=== PATIENT | male | born 1995 ===

== ENCOUNTER 2017-07-16 02:04 | Emergency (ER) | payer OTHER ==
[~2017-07-16] VITALS: Ht 175.3 cm; Wt 75.5 kg
[~2017-07-16 02:04] MED LIST: [UNRECOGNIZED DRUG - CODE] PO
[2017-07-16 02:11] VITALS: TEMP 36.7; Ht 175.3 cm; Wt 75.5 kg
[2017-07-16 02:57] LABS: BASO % 0.1 %; BASO ABS # 0.01 K/uL (0-0.2); EOS % 1.1 %; EOS ABS # 0.09 K/uL (0-0.5); HEMATOCRIT 45.1 % (42-52); HEMOGLOBIN 15.7 g/dL (14.0-18.0); IG# 0.01 K/uL (0.00-0.02); LYMPH % 17.8 %; LYMPH ABS # 1.42 K/uL (1.2-3.4); MEAN CELL VOLUME 85.1 fL (80-100); MEAN CORPUSCULAR HEMOGLOBIN 29.6 pg (25-34); MEAN CORPUSCULAR HGB CONC 34.8 g/dl (32-36); MEAN PLATELET VOLUME 10.7 fL (7.4-10.4); MONO ABS # 0.88 K/uL (0.11-0.59); NEUT % 69.9 %; NEUT ABS # 5.59 K/uL (1.4-6.5); PLATELET COUNT 143 K/uL (130-400); RED CELL DISTRIBUTION WIDTH CV 12.8 % (11.5-14.5); RED CELL DISTRIBUTION WIDTH SD 39.7 fL (36.4-46.3)
[2017-07-16 03:17] LABS: ALBUMIN 4.3 gm/dl (3.4-5.0); CALCIUM 9.1 mg/dl (8.5-10.1); CREATININE 1.09 mg/dl (0.60-1.40); POTASSIUM 3.8 mmol/L (3.5-5.1)
[2017-07-16 03:19] LABS: TOTAL PROTEIN 8.1 gm/dl (6.4-8.2)
[2017-07-16 03:30] LABS: INFLUENZA B ANTIGEN Neg for Influ B (NEG)
[2017-07-16] MEDS ORDERED: OPTIRAY 320 IV PRN (03:45)
[2017-07-16] MEDS ORDERED: LORAZEPAM 2 MG/ML 1 ML VIAL IV STA (04:53)
[2017-07-16] MEDS ORDERED: LORAZEPAM 2 MG/ML 1 ML VIAL ONE (04:53)
[2017-07-16] MEDS ORDERED: NURSING VERBAL MED ORDER ONE (05:00)
[2017-07-16] MEDS ORDERED: VANCOMYCIN INJ 2,000 MG in SODIUM CHLORIDE 0.9% 500ML 500 ML IV STA (05:07)
[2017-07-16] MEDS ORDERED: CEFTRIAXONE SOD INJ 1 GM ADDVIAL IV STA (05:07)
[2017-07-16] MEDS ORDERED: VANCOMYCIN CONSULT ACTIVE PRN (05:15)
[2017-07-16] MEDS ORDERED: DEXAMETHASONE **PF** INJ 10 MG/ML VIAL IV ONE (05:15)
[2017-07-16] MEDS ORDERED: FAMOTIDINE 20MG/5ML IV PUSH IV STA (06:05)
--- NOTE | 2017-07-16 06:11 | EMERGENCY ROOM VISIT NOTE ---
History First contact with patient: 02:18 Chief Complaint: FOOD BOLUS Stated Complaint: FOOD BOLUS Nursing Triage Summary: c/o of being unable to swallow over the last several days. Pt states that it got worse this morning at 1000. History of Present Illness The patient is a 22 year old male who presents to the Emergency Room with complaints of dysphasia and feeling like something is in his throat having difficulty swallowing for the past day with a fever and cold symptoms prior to this beginning. Patient states Tuesday he felt like he had a flu. He had fevers chills body aches and pains. He states later that night he felt like something was in his throat and having difficulty swallowing. Symptoms persisted and this is what prompted him to come to the ER. Patient denies chest pain, dyspnea, productive cough, sore throat, abdominal pain, vomiting, diarrhea. Review of Systems An 10 system review of systems was completed with positives and pertinent negatives listed in the HPI. Past Medical/Surgical History None Family History No significant family history Social History Smoking Status: Never Smoker Alcohol Use: none Drug Use: marijuana Marital Status: single Housing Status: lives with roommate Occupation Status: [employer] Current/Historical Medications No Active Prescriptions or Reported Meds Physical Exam Vital Signs Date Time Temp Pulse Resp B/P (MAP) Pulse Ox O2 Delivery O2 Flow Rate FiO2 07/16/17 06:04 81 19 128/83 99 Room Air 07/16/17 04:45 128/73 98 Room Air 07/16/17 03:25 75 20 118/73 97 Room Air 07/16/17 02:50 Room Air 07/16/17 02:11 36.7 95 20 132/88 97 Room Air Physical Exam VITALS: Vitals are noted on the nurse's note and reviewed by myself. Vital signs stable. GENERAL: Pleasant male, in no acute distress, nondiaphoretic, well-developed well-nourished. SKIN: The skin was without rashes, erythema, edema, or bruising. There is no tenting of the skin. Capillary reflex less than 2 seconds. HEAD: Normocephalic atraumatic. EARS: External auditory canals clear, tympanic membranes pearly ordoñez without erythema or effusion bilaterally. EYES: Pupils equal round and reactive to light and accommodation. Conjunctivae without injection, sclerae without icterus. Extraocular movements intact. NOSE: Patent, turbinates without inflammation or discharge. No sinus tenderness. MOUTH: Mucous membranes moist. Pharynx without erythema or exudate. Uvula midline. Airway patent. Tongue does not deviate. NECK: Supple without nuchal rigidity. No lymphadenopathy. No thyromegaly. Cervical spine is nontender. No JVD. HEART: Regular rate and rhythm without murmurs gallops or rubs. LUNGS: Clear to auscultation bilaterally without wheezes, rales or rhonchi. No dullness to percussion. No retractions or accessory muscle use. ABDOMEN: Positive bowel sounds x 4. Normal tympanic percussion. Soft, nontender, without masses or organomegaly. Garza sign negative. No guarding or rebound tenderness. MUSCULOSKELETAL: No muscle atrophy, erythema, or edema noted. NEURO: Patient was alert and oriented to person place and time. Normal sensation to light and sharp touch. No focal neurological deficits. Medical Decision & Procedures Laboratory Results 07/16/17 02:45 Red Blood Count 5.30, Mean Corpuscular Volume 85.1, Mean Corpuscular Hemoglobin 29.6, Mean Corpuscular Hemoglobin Concent 34.8, Mean Platelet Volume 10.7, Neutrophils (%) (Auto) 69.9, Lymphocytes (%) (Auto) 17.8, Monocytes (%) (Auto) 11.0, Eosinophils (%) (Auto) 1.1, Basophils (%) (Auto) 0.1, Neutrophils # (Auto ) 5.59, Lymphocytes # (Auto) 1.42, Monocytes # (Auto) 0.88, Eosinophils # (Auto ) 0.09, Basophils # (Auto) 0.01 07/16/17 02:45 Test 07/16/17 02:45 07/16/17 02:54 07/16/17 05:26 White Blood Count 8.00 K/uL (4.8-10.8) Red Blood Count 5.30 M/uL (4.7-6.1) Hemoglobin 15.7 g/dL (14.0-18.0) Hematocrit 45.1 % (42-52) Mean Corpuscular Volume 85.1 fL (80-100) Mean Corpuscular Hemoglobin 29.6 pg (25-34) Mean Corpuscular Hemoglobin Concent 34.8 g/dl (32-36) Platelet Count 143 K/uL (130-400) Mean Platelet Volume 10.7 fL (7.4-10.4) Neutrophils (%) (Auto) 69.9 % Lymphocytes (%) (Auto) 17.8 % Monocytes (%) (Auto) 11.0 % Eosinophils (%) (Auto) 1.1 % Basophils (%) (Auto) 0.1 % Neutrophils # (Auto) 5.59 K/uL (1.4-6.5) Lymphocytes # (Auto) 1.42 K/uL (1.2-3.4) Monocytes # (Auto) 0.88 K/uL (0.11-0.59) Eosinophils # (Auto) 0.09 K/uL (0-0.5) Basophils # (Auto) 0.01 K/uL (0-0.2) RDW Standard Deviation 39.7 fL (36.4-46.3) RDW Coefficient of Variation 12.8 % (11.5-14.5) Immature Granulocyte % (Auto) 0.1 % Immature Granulocyte # (Auto) 0.01 K/uL (0.00-0.02) Anion Gap 5.0 mmol/L (3-11) Est Creatinine Clear Calc Drug Dose 104.6 ml/min Estimated GFR () 109.5 Estimated GFR (Non- 94.5 BUN/Creatinine Ratio 13.3 (10-20) Calcium Level 9.1 mg/dl (8.5-10.1) Total Bilirubin 0.5 mg/dl (0.2-1) Direct Bilirubin 0.1 mg/dl (0-0.2) Aspartate Amino Transf (AST/SGOT) 17 U/L (15-37) Alanine Aminotransferase (ALT/SGPT) 26 U/L (12-78) Alkaline Phosphatase 74 U/L (45-117) Total Protein 8.1 gm/dl (6.4-8.2) Albumin 4.3 gm/dl (3.4-5.0) Influenza Type A Antigen Neg for Influ A (NEG) Influenza Type B Antigen Neg for Influ B (NEG) Bedside Lactic Acid Venous 0.76 mmol/L (0.90-1.70) Medications Administered Medications (Trade) Dose Ordered Sig/Bonilla Route Start Time Stop Time Status Last Admin Dose Admin Miscellaneous Information (Nursing Verbal Med Order) 1 ea ONE ONCE N/A 07/16/17 05:00 07/16/17 05:01 DC 07/16/17 05:00 1 EA Lorazepam (Ativan Inj) 1 mg NOW STAT IV 07/16/17 04:53 07/16/17 04:54 DC 07/16/17 04:55 1 MG Dexamethasone Sodium Phosphate (Dexamethasone Inj Pf) 10 mg NOW ONCE IV 07/16/17 05:15 07/16/17 05:16 DC 07/16/17 05:42 10 MG ED Course Prior records/ancillary studies reviewed. Triage Nursing notes reviewed. Additional history obtained from friend. The patient's history was concerning for a dysphasia. Differential diagnosis: Etiologies such as viral syndrome, reflux, anxiety, epiglottitis, tonsillitis, streptococcal pharyngitis, mononucleosis, peritonsillar abscess, retropharyngeal abscess, otitis, pneumonia, influenza, as well as others were entertained. ER treatment provided: [] On reassessment the patient felt better. Diagnostics interpreted by me: The labs revealed no worrisome leukocytosis. Negative influenza Imaging studies: Stat radiology read the CT of the neck and concerning for possible supraglottitis. Neck soft tissue with no airway narrowing per my interpretation Consultation: A consultation was placed with ENT, Dr. Gabriel came in and evaluated the patient. He recommends prednisone taper pack, Augmentin, Zantac and omeprazole. This appears to be consistent with mild irritation to the epiglottic folds without epiglottitis that could be related to reflux or infectious in etiology. ENT evaluated the patient and did a nasopharyngeal scope. There recommend antibiotics, prednisone along with omeprazole and Zantac. Patient was neurovascularly and neurologically intact. No signs of meningitis. He was well -appearing. He was maintaining his airway and his own secretions. He was advised to take medications as directed and to follow-up with health services and/or ENT the next 2 days or here in the ER sooner for difficulty swallowing, chest pain, high fevers, neck stiffness, worsening sign or symptoms or as needed. By the evaluation outlined above emergent etiologies such as peritonsillar abscess, retropharyngeal abscess, otitis, pneumonia, meningitis, urinary tract infection, sepsis, bacteremia, as well as others were deemed relatively unlikely. The pt informed about the findings as listed above. All questions were answered and pleased with the treatment. Return instructions were outlined and the patient was discharged in stable condition. Outpatient prescription management: Prednisone, omeprazole, Augmentin, Zantac Referral: The patient was referred back to their primary care physician for follow-up in 2 to 3 days for a recheck of the current condition. Medical Decision As above Medication Reconcilliation Current Medication List: was personally reviewed by me Blood Pressure Screening Patient's blood pressure: Normal blood pressure Impression Primary Impression: Dysphasia Departure Information Dispostion Home / Self-Care Condition GOOD Prescriptions No Active Prescriptions or Reported Meds Referrals [facility] (PCP) Patient Instructions My [facility] Additional Instructions Amoxicillin Clavulanate (Augmentin) 875mg: Take one pill twice daily for 10 days for your infection. All antibiotics can cause diarrhea. If this occurs and you feel worse or it does not resolve in 1-2 days follow up with your doctor or return to the Emergency Department as this could be signs of serious underlying problems. Any medication can cause an allergic reaction, stop the pills immediately and return to the ER for rash, hives, breathing difficulties, or swelling. Prednisone taper as directed. Omeprazole 20 m tablet daily for next 2 weeks. Take this on an empty stomach. Zantac 150 m tablet twice a day for the next 2 weeks. Avoid large meals. Avoid acidic foods. Soft foods until symptoms resolve. Rest and drink plenty of fluids as tolerated. Continue current medications. Avoid strenuous activities and anything that worsens your pain. Resume normal activities once your symptoms resolve. Return to the ER immediately for worsening or persistent difficulty swallowing, chest pain, abdominal pain, black or blood in your stools, vomiting, fevers, chest pains, difficulty breathing, worsening of your condition, or as needed. Follow up with your primary physician and/or ENT in 2-3 days for a recheck of your current condition.
[2017-07-16] MEDS ORDERED: AGMUDL4005 PO (06:15)
[2017-07-16] MEDS ORDERED: ZNTT/150 PO (06:15)
[2017-07-16] MEDS ORDERED: PANTOprazole INJ 40 MG in SYRINGE 0 ML IV ONE (06:15)
[2017-07-16] MEDS ORDERED: PRLSR20 PO (06:15)
--- NOTE | 2017-07-16 06:44 | ENT CONSULTATION ---
DATE OF CONSULTATION: 07/16/2017 I have been asked by physician assistant vice president Bety Castañeda in the [facility] Emergency Room to evaluate this patient with possible supraglottitis. HISTORY OF PRESENT ILLNESS: The patient is a 22-year-old male originally from [place] who is a [employer] who presented to the Emergency Room with a 5-6 day history of sore throat, intermittent cough, and dysphagia. He denies any antecedent illness, trauma, change in dietary or sexual practices, or any other thing that may have triggered his symptomatology. He states that he was able to run 4 days ago, but would cough more than usual when running. He then started to have some drooling and spitting out of his saliva and inability to tolerate eating or drinking anything over the past 12-24 hours. He had a lateral neck x-ray as well as a CT scan of the neck with IV contrast. I reviewed the actual films of the CT scan and his epiglottis is completely normal on the CT scan. He does have some swelling of the arytenoids and aryepiglottic folds on the CT scan as well as perhaps some mild true vocal fold edema with a widely patent glottic airway. I have been asked to perform laryngoscopy given this presentation. Overall, the patient is somewhat of a poor historian. He is otherwise a fairly healthy individual with no medical problems. ALLERGIES: No known drug allergies. HOME MEDICATIONS: None. PAST MEDICAL HISTORY: None. PAST SURGICAL HISTORY: Status post appendectomy. FAMILY HISTORY: Noncontributory. No bleeding disorders or malignant hyperthermia. SOCIAL HISTORY: The patient is a [employer] student and lives with his roommate. He is single. He denies tobacco or alcohol use, but has smoked marijuana at times. REVIEW OF SYSTEMS: The patient denies any otalgia, hearing loss, tinnitus, dizziness, or vertigo. He denies any nasal congestion, rhinorrhea, or postnasal drip. He denies any sore throat in the oropharyngeal area. He mainly complains of a hypopharyngeal sore throat with intermittent coughing as well as dysphagia. He has not had any weight loss. PHYSICAL EXAMINATION: GENERAL: This is a young adult male in no acute distress with a completely normal voice. There is no stertor or stridor. VITAL SIGNS: He is afebrile and his vital signs are stable. He is in no acute distress. He is well developed and well-nourished. HEENT: Bilateral external auditory canals and tympanic membranes are clear. Nasal examination reveals a mild left septal deviation and right greater than left inferior turbinate hypertrophy with mild nasal mucosal congestion. Oral cavity and oropharyngeal examination reveals mild erythema involving the posterior pharyngeal wall with normal 1+ cryptic tonsils bilaterally. There are no mucosal lesions or masses. NECK: Reveals no lymphadenopathy, thyroid nodularity, or masses. Trachea is midline. NEUROLOGIC: Cranial nerves II-XII are grossly intact. After administration of topical lidocaine and Afrin to the right nasal cavity, flexible laryngoscopy was performed revealing moderate erythema and mild edema of the arytenoids and postcricoid region as well as very mild erythema and minimal edema of the aryepiglottic folds. The true vocal folds are normal with normal mobility to the midline. There are no mucosal lesions or masses. There is no pooling of secretions within the piriform sinuses. LABORATORY DATA: Shows normal white blood cell count of 8. He has mild hyponatremia with a sodium of 135. The rest of his laboratory is unremarkable. Influenza A and influenza B are negative. IMPRESSION AND RECOMMENDATIONS: A 22-year-old male with mild to moderate erythema and swelling of the arytenoids and aryepiglottic folds without definitive supraglottitis. I am wondering if this is more reflux related. Nevertheless, we will treat him for both reflux and infectious causes. I recommended Augmentin 875 mg twice a day for 2 weeks as well as a prednisone taper of 30 mg twice a day for 2 days followed by 20 mg twice a day for 2 days followed by 10 mg twice a day for 2 days followed by 10 mg daily for 2 days. In addition, I would recommend omeprazole 20 mg daily for 2 weeks, and ranitidine 150 mg p.o. b.i.d. for 2 weeks. I counseled the patient on lifestyle and dietary changes to control reflux. He is to call if he has any worsening symptomatology. The patient can be discharged to home on the following medications but should come back if he has any trouble swallowing, drooling, change in his voice, or airway concerns. If you have any questions regarding this consultation, please do not hesitate to contact me.
[2017-07-16 06:47] VITALS: BP 108/81; PULSE 81; O2SAT 98
--- NOTE | 2017-07-16 07:12 | DIAGNOSTIC IMAGING REPORT ---
SOFT TISSUE NECK WITH CLINICAL HISTORY: 22 years-old Male presenting with severe dysphagia, fever, difficulty talking and swallowing. TECHNIQUE: Multidetector CT of the neck was performed after the administration of intravenous contrast. IV contrast: 94 mL of Optiray 320. A dose lowering technique was used consistent with the principles of ALARA (as low as reasonably achievable). COMPARISON: Plain radiographs performed earlier the same day. CT DOSE (mGy.cm): The estimated cumulative dose is 519.97 mGy.cm. FINDINGS: Manager Cancer topogram: Unremarkable. Paranasal sinuses and mastoid air cells clear. Orbits intact. Limited intracranial evaluation within normal limits. Peripharyngeal fat planes are nondisplaced. Valleculae and piriform sinuses not effaced. The epiglottis is normal. No suspicious nodular enhancement. Mild thickening of the aryepiglottic folds. No retropharyngeal inflammatory change or fluid collection.. The cervical esophagus demonstrates mild distention with fluid and gas. Subtle mucosal hyperenhancement of the cervical esophagus may be present at the upper esophageal sphincter. No lymphadenopathy. No superficial inflammatory change. Normal thyroid. Patent vasculature. Lung apices clear. Osseous structures normal. IMPRESSION: 1. Mild thickening of the aryepiglottic folds could suggest supraglottitis. No evidence of epiglottitis. No evidence of retropharyngeal abscess or other inflammatory change. 2. Possible mucosal hyperenhancement of the cervical esophagus could suggest mild inflammatory change. 3. These findings were discussed as a preliminary report with physician's biology laboratory assistant Marli Castañeda in the ER by Dr. Beau Jim at 5:01 AM on 07/16/2017. Electronically signed by: Obey Gill M.D. 07/16/2017 7:10 AM Dictated Date/Time: 07/16/2017 7:00 AM
--- NOTE | 2017-07-16 08:06 | DIAGNOSTIC IMAGING REPORT ---
SOFT TISSUE NECK CLINICAL HISTORY: 22 years-old Male presenting with dysphagia. TECHNIQUE: Lateral and frontal views of the neck were obtained. COMPARISON: CTA neck performed subsequently the same day. FINDINGS: No prevertebral soft tissue swelling. Straightening of normal cervical lordosis. Otherwise normal cervical spine. No apparent narrowing of the airway. Aryepiglottic folds and epiglottis radiographically normal. Lung apices clear. IMPRESSION: Unremarkable radiographs of the neck. Please see separately dictated CT of the neck. Electronically signed by: Obey Gill M.D. 07/16/2017 8:05 AM Dictated Date/Time: 07/16/2017 8:03 AM
== END 2017-07-16 06:48 | disposition home or self-care (01) ==
LOC: C.EDB 02:06
DX: R13.10 Dysphagia, unspecified (principal); K22.9 Disease of esophagus, unspecified